=== PATIENT | female | born 1970 | race Two or more races ===

== ENCOUNTER → 2021-12-02 | Outpatient (CLI) | payer OTHER ==
--- NOTE | 2021-12-03 09:14 | RAD ---
XR KNEE_RT 1-2 VIEWS History: Reason: RIGHT KNEE PAIN. / Spl. Instructions: / History: Technique: 2 views right knee Comparison: None. Findings: Mild right knee degenerative changes most prominent within the medial compartment with joint space na rrowing. No dislocation. No acute fracture. Minimal patellar spurring. No significant knee joint effu rita. Impression: 1. Mild right knee DJD. Electronically signed by: Venu Campbell DO (12/03/2021 9:12 AM) [id number]
== END ==
LOC: RAD 12:44
PROVIDERS: ATTEND Family Medicine
DX: M17.11 Unilateral primary osteoarthritis, right knee (principal); M76.891 Other specified enthesopathies of right lower limb, excluding foot
CPT/HCPCS: 73560